=== PATIENT | male | born 1985 | race African-American/Black ===

== ENCOUNTER 2019-12-20 08:54 | Emergency (ER) | payer SELFPAY ==
[~2019-12-20] VITALS: Ht 180.3 cm; Wt 120.5 kg
[2019-12-20 08:59] VITALS: Ht 180.3 cm; Wt 120.5 kg
[2019-12-20 10:31] VITALS: BP 120/82
== END 2019-12-20 10:33 | disposition home or self-care (01) ==
LOC: D.ER 08:54
DX: S01.01XA Laceration without foreign body of scalp, initial encounter (principal); W22.8XXA Striking against or struck by other objects, initial encounter; Y93.83 Activity, rough housing and horseplay; Y92.9 Unspecified place or not applicable

== ENCOUNTER 2020-01-19 07:32 | Emergency (ER) | payer SELFPAY ==
[~2020-01-19] VITALS: Ht 180.3 cm; Wt 120.9 kg
[2020-01-19 07:36] VITALS: Ht 180.3 cm; Wt 120.9 kg
[2020-01-19 07:47] VITALS: BP 122/71
== END 2020-01-19 07:47 | disposition home or self-care (01) ==
LOC: D.ER 07:32
DX: Z48.02 Encounter for removal of sutures (principal)